=== PATIENT | female | born 1940 | race Caucasian/White ===

== ENCOUNTER 2018-08-03 18:17 | Emergency (ER) | payer MEDICARE ==
[~2018-08-03] VITALS: Ht 160 cm; Wt 98.9 kg
[2018-08-03 18:47] VITALS: BP_SYST 139
--- NOTE | 2018-08-03 19:00 | NUR ---
Pt LWBS at this time.
== END 2018-08-03 19:00 | disposition left against medical advice (07) ==
LOC: SED 18:17
DX: M79.661 Pain in right lower leg (principal); M79.662 Pain in left lower leg; Z53.21 Procedure and treatment not carried out due to patient leaving prior to being seen by health care provider